=== PATIENT | male | born 1955 | race African-American/Black ===

== ENCOUNTER 2017-10-04 12:41 | Emergency (ER) | payer OTHER ==
[~2017-10-04] VITALS: Ht 180.3 cm; Wt 80.7 kg
[2017-10-04] MEDS ORDERED: ASPIR-TRIN325 MG PO (12:48)
[2017-10-04 13:42] LABS: HEMATOCRIT 37.2 % (42.0-52.0); HEMOGLOBIN 12.1 gm/dL (14.0-18.0); MCH 24.3 pg (26.0-34.0); MCHC 32.6 g/dL (28.0-37.0); MCV 74.6 fL (80.0-100.0); RBC 4.98 mil/uL (4.50-6.00); RDW 35.6 % (10.5-14.5)
[2017-10-04 13:50] LABS: CALCIUM 8.8 mg/dL (8.5-10.1); CREATININE 1.4 mg/dL (0.7-1.3); POTASSIUM 4.1 mmol/L (3.5-5.1)
[2017-10-04 13:55] LABS: TOTAL BILIRUBIN 0.7 mg/dL (<0.1-1.0)
[2017-10-04 13:56] LABS: ALBUMIN 2.9 g/dL (3.4-5.0); TOTAL PROTEIN 7.6 g/dL (6.4-8.2)
[2017-10-04 14:11] LABS: URINE BILIRUBIN NEGATIVE (Negative); URINE BLOOD TRACE (Negative); URINE CLARITY CLEAR; URINE COLOR YELLOW; URINE GLUCOSE-RANDOM* NEGATIVE (Negative); URINE KETONES NEGATIVE (Negative); URINE LEUKOCYTES-REFLEX NEGATIVE (Negative); URINE NITRITE-REFLEX NEGATIVE (Negative); URINE PROTEIN (DIPSTICK) NEGATIVE (Negative); URINE SPECIFIC GRAVITY >= 1.030 (1.005-1.035); URINE UROBILINOGEN 0.2 E.U./dl (0.2-1.0)
[2017-10-04 14:49] VITALS: BP 108/67
== END 2017-10-04 14:50 | disposition home or self-care (01) ==
LOC: ER 12:41
PROVIDERS: Emergency Medicine
DX: R50.9 Fever, unspecified (principal); F17.210 Nicotine dependence, cigarettes, uncomplicated